=== PATIENT | female | born 1990 | race Caucasian/White ===

== ENCOUNTER 2016-10-17 16:25 | Emergency (ER) | payer OTHER ==
[~2016-10-17] VITALS: Ht 162.6 cm; Wt 49.4 kg
[2016-10-17 20:33] VITALS: BP 122/91
== END 2016-10-17 20:33 | disposition left against medical advice (07) ==
LOC: ED 16:25
DX: Z53.21 Procedure and treatment not carried out due to patient leaving prior to being seen by health care provider (principal)